=== PATIENT | male | born 1985 | race Caucasian/White ===

== ENCOUNTER 2018-07-05 11:53 | Emergency (ER) | payer MEDICAID ==
[~2018-07-05] VITALS: Ht 182.9 cm; Wt 78.0 kg
[2018-07-05 13:07] LABS: BASOPHILS # (AUTO) 0.1 X10'3 (0-0.2); BASOPHILS % (AUTO) 0.4 % (0-1); EOSINOPHILS % (AUTO) 0 % (0-6); HEMATOCRIT 38.6 % (42.0-52.0); HEMOGLOBIN 13.3 g/dl (14.0-17.9); LYMPHOCYTES # (AUTO) 1.9 X10'3 (1.1-4.8); LYMPHOCYTES % (AUTO) 13.2 % (21-51); MEAN CORPUSCULAR HGB CONC 34.3 % (33.0-36.5); MEAN CORPUSCULAR VOLUME 93.3 FL (78-98); MEAN PLATELET VOLUME 7.3 FL (7.4-10.4); MONOCYTES # (AUTO) 1.4 X10'3 (0-0.9); MONOCYTES % (AUTO) 9.2 % (2-12); NEUTROPHILS # (AUTO) 11.3 X10'3 (1.8-7.7); NEUTROPHILS % (AUTO) 77.2 % (42-75); PLATELET COUNT 291 X10'3 (140-440); RED BLOOD COUNT 4.14 X10'6 (4.70-6.10); RED CELL DISTRIBUTION WIDTH 13.2 % (11.5-14.5); WHITE BLOOD COUNT 14.7 X10'3 (4.5-11.0)
[2018-07-05 13:21] LABS: PARTIAL THROMBOPLASTIN TIME 34 SECONDS (22-32); PROTHROMBIN TIME 9.7 SECONDS (9.0-12.0)
[2018-07-05 13:22] LABS: ALANINE AMINOTRANSFERASE 25 U/L (12-78); ALBUMIN 3.8 G/DL (3.4-5.0); ALBUMIN/GLOBULIN RATIO 0.9 (1.1-1.5); ALKALINE PHOSPHATASE 97 IU/L (46-116); ANION GAP 12 (8-16); ASPARTATE AMINO TRANSFERASE 30 U/L (10-37); BILIRUBIN,TOTAL 0.8 MG/DL (0.1-1.0); BLOOD UREA NITROGEN 10 MG/DL (7-18); CALCIUM 8.8 MG/DL (8.5-10.1); CHLORIDE 99 MMOL/L (99-107); CREATININE 0.77 MG/DL (0.60-1.10); GLUCOSE 84 MG/DL (70-104); POTASSIUM 3.5 MMOL/L (3.5-5.1); SODIUM 137 MMOL/L (135-145); TOTAL CARBON DIOXIDE 25.9 MMOL/L (24-32); TOTAL PROTEIN 7.9 G/DL (6.4-8.2); eGFR > 90 ML/MIN
[2018-07-05 13:41] LABS: CLARITY,URINE CLEAR (Clear); COLOR,URINE YELLOW (Yellow); GLUCOSE, URINE NEGATIVE (Neg); KETONES,URINE NEGATIVE (Neg); LEUKOCYTE ESTERASE ,URINE NEGATIVE (Neg); NITRITES, URINE NEGATIVE (Neg); OCCULT BLOOD,URINE NEGATIVE (Neg); PH,URINE 5.5 (4.8-8.0); PROTEIN,URINE NEGATIVE (Neg); UA COLLECTION TYPE VOIDED; UROBILINOGEN,URINE 0.2 E.U/dL (0.2-1.0)
[2018-07-05] MEDS ORDERED: ketorolac trometh inj. 60 MG/2 ML VIAL IM ONE (14:00)
[2018-07-05] MEDS ORDERED: CLIN150C2 PO (14:05)
[2018-07-05 14:41] VITALS: BP 145/80
== END 2018-07-05 14:43 | disposition home or self-care (01) ==
LOC: ER 11:53
DX: L03.114 Cellulitis of left upper limb (principal)
CPT/HCPCS: 36415; 80053; 81003; 83605; 84145; 85025; 85610; 85730; 87040; 96372; 99283; J1885

== ENCOUNTER 2019-08-28 06:05 | Emergency (ER) | payer MEDICAID ==
[~2019-08-28] VITALS: Ht 182.9 cm; Wt 86.3 kg
[~2019-08-28 06:05] MED LIST: DIPH25CA83 PO; FAMO10TA41 PO
[2019-08-28 06:13] VITALS: BP 124/65
[2019-08-28] MEDS ORDERED: ibuprofen tablet 400 MG TABLET PO ONE (07:20)
== END 2019-08-28 07:45 | disposition home or self-care (01) ==
LOC: ER 06:07
DX: S82.832A Other fracture of upper and lower end of left fibula, initial encounter for closed fracture (principal); F17.200 Nicotine dependence, unspecified, uncomplicated; F15.90 Other stimulant use, unspecified, uncomplicated; F11.90 Opioid use, unspecified, uncomplicated; Z72.89 Other problems related to lifestyle; Z79.899 Other long term (current) drug therapy; X58.XXXA Exposure to other specified factors, initial encounter; Y93.89 Activity, other specified; Y92.89 Other specified places as the place of occurrence of the external cause; Y99.8 Other external cause status
CPT/HCPCS: 73610; 99283

== ENCOUNTER 2019-09-11 08:52 | Emergency (ER) | payer MEDICAID ==
[~2019-09-11] VITALS: Ht 182.9 cm; Wt 90.9 kg
[2019-09-11] MEDS ORDERED: ibuprofen tablet 400 MG TABLET PO ONE (10:45)
--- NOTE | 2019-09-11 11:15 | NUR ---
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
[2019-09-11] MEDS ORDERED: NAPR-56 PO (11:40)
[2019-09-11] MEDS ORDERED: CEPH250T PO (11:40)
[2019-09-11 11:46] VITALS: BP 131/83
== END 2019-09-11 11:49 | disposition home or self-care (01) ==
LOC: ER 08:52
DX: L03.116 Cellulitis of left lower limb (principal); R60.0 Localized edema; G89.29 Other chronic pain; F15.90 Other stimulant use, unspecified, uncomplicated; F11.90 Opioid use, unspecified, uncomplicated; Z72.89 Other problems related to lifestyle; Z79.899 Other long term (current) drug therapy
CPT/HCPCS: 93971; 99284

== ENCOUNTER 2019-09-21 18:07 | Emergency (ER) | payer MEDICAID ==
[~2019-09-21] VITALS: Ht 182.9 cm; Wt 175.0 kg
[~2019-09-21 18:07] MED LIST changes: +CEPH250T PO; +NAPR-56 PO
--- NOTE | 2019-09-21 18:22 | NUR ---
pt state he fell over a curb now has shoulder pain there is slight deformity to l shoulder painful to palpation and has limited movememt
[2019-09-21 19:24] VITALS: BP 134/80
== END 2019-09-21 19:26 | disposition home or self-care (01) ==
LOC: ER 18:07
DX: S40.012A Contusion of left shoulder, initial encounter (principal); S00.81XA Abrasion of other part of head, initial encounter; F10.929 Alcohol use, unspecified with intoxication, unspecified; F12.90 Cannabis use, unspecified, uncomplicated; F11.90 Opioid use, unspecified, uncomplicated; Z79.899 Other long term (current) drug therapy; W18.30XA Fall on same level, unspecified, initial encounter; Y93.89 Activity, other specified; Y92.89 Other specified places as the place of occurrence of the external cause; Y99.9 Unspecified external cause status; Y90.9 Presence of alcohol in blood, level not specified
CPT/HCPCS: 73030; 99284

== ENCOUNTER 2021-09-18 22:54 | Emergency (ER) | payer SELFPAY ==
[~2021-09-18] VITALS: Ht 182.9 cm; Wt 84.1 kg
[~2021-09-18 22:54] MED LIST changes: -CEPH250T PO; -NAPR-56 PO
[2021-09-18 23:12] VITALS: BP 135/92
[2021-09-18] MEDS ORDERED: ondansetron 4mg rapidly disintigrating tab PO ONE (23:15)
== END 2021-09-19 00:08 | disposition home or self-care (01) ==
LOC: ER 22:55
DX: A05.9 Bacterial foodborne intoxication, unspecified (principal); K29.00 Acute gastritis without bleeding; L84 Corns and callosities; F15.10 Other stimulant abuse, uncomplicated; F11.10 Opioid abuse, uncomplicated
CPT/HCPCS: 99283